=== PATIENT | male | born 1965 | race Hispanic/Latino ===

== ENCOUNTER 2018-03-05 19:31 | Inpatient (IN) | payer MEDICARE ==
[~2018-03-05] VITALS: Ht 175.3 cm; Wt 98.8 kg
[2018-03-05] MEDS ORDERED: ONDANSETRON HCL 4 MG/2 ML VIAL ONE (20:00)
[2018-03-05] MEDS ORDERED: SODIUM CHLORIDE 0.9% 1000ML 1,000 ML IV ONE (20:00)
[2018-03-05] MEDS ORDERED: MORPHINE SULFATE 8 MG/ML VIAL ONE ×2 (20:01→22:28)
[2018-03-05 20:06] LABS: BASOPHILS % (AUTO) 0.4 % (0.0-5.0); EOSINOPHILS % (AUTO) 0.1 % (0.0-8.0); HEMATOCRIT 46.1 % (42-54); LYMPHOCYTES % (AUTO) 22.5 % (21.0-51.0); MEAN CORPUSCULAR HGB CONC 35.3 g/dL (32.0-36.0); MEAN CORPUSCULAR VOLUME 84.9 fL (79-99); MONOCYTES % (AUTO) 4.3 % (3.0-13.0); NEUTROPHILS % (AUTO) 72.7 % (40.0-77.0); PLATELET COUNT (AUTO) 250 K/uL (130-400); RED BLOOD CELL COUNT(AUTO) 5.42 MIL/uL (4.50-6.20); RED CELL DISTRIBUTION WIDTH 15.5 % (11.0-15.5); WHITE BLOOD COUNT (AUTO) 12.3 K/uL (4.8-10.8)
[2018-03-05 20:22] LABS: ALBUMIN 3.5 g/dL (3.5-5.0); BILIRUBIN,TOTAL 0.8 mg/dL (0.2-1.0); CREATININE 2.6 mg/dL (0.5-1.5); POTASSIUM 5.2 mmol/L (3.5-5.1); TOTAL PROTEIN, SERUM 7.7 g/dL (6.0-8.3)
[2018-03-05 20:48] LABS: APPEARANCE,URINE CLEAR (CLEAR); BILIRUBIN,URINE NEGATIVE (NEGATIVE); COLOR,URINE YELLOW (YELLOW); GLUCOSE, URINE (UA) >=1000 mg/dL (NEGATIVE); KETONES,URINE 5 mg/dL (NEGATIVE); LEUKOCYTE ESTERASE ,URINE NEGATIVE (NEGATIVE); NITRATE,URINE NEGATIVE (NEGATIVE); OCCULT BLOOD,URINE MODERATE (NEGATIVE); PROTEIN,URINE >=300 (NEGATIVE); UROBILINOGEN,URINE 0.2 mg/dL (0.2-1.0)
[2018-03-05 21:06] LABS: BACTERIA,URINE Rare /HPF (None Seen); SQUAMOUS EPITHELIAL CELL,UR 0-2 /HPF (0-2); WBC,URINE 0-1 /HPF (0-1)
[2018-03-05] MEDS ORDERED: INSULIN HUMULIN R 100 UNIT/ML 3ML ONE (21:44)
[2018-03-05] MEDS ORDERED: GLUCAGON 1MG KIT 1 MG ML IM PRN (23:45)
[2018-03-05] MEDS ORDERED: DEXTROSE 50%-WATER 50 ML DISP.SYRIN IV PRN (23:45)
[2018-03-06] LABS: HEMOGLOBIN A1C 9.9 % (4.0-6.0)
[2018-03-06] MEDS ORDERED: INSULIN HUMULIN R 100 UNIT/ML 3ML ONE (01:22)
[2018-03-06 03:00] VITALS: BP 166/97
[2018-03-06] MEDS ORDERED: ONDANSETRON HCL 4 MG/2 ML VIAL IV PRN (03:45)
[2018-03-06] MEDS ORDERED: MORPHINE SULFATE 4 MG/1ML SYG IV PRN (03:45)
[2018-03-06] MEDS ORDERED: MORPHINE SULFATE 2 MG/ML 1ML SYG IV PRN (03:45)
[2018-03-06] MEDS ORDERED: ACETAMINOPHEN 325 MG TAB PO PRN (03:45)
[2018-03-06] MEDS ORDERED: PROMETHAZINE HCL 25 MG/ML 1ML AMPULE IM PRN (04:00)
[2018-03-06] MEDS ORDERED: PROMETHAZINE HCL 25 MG/ML 1ML AMPULE IM ONE (04:19)
[2018-03-06] MEDS ORDERED: MORPHINE SULFATE 4 MG/1ML SYG ONE (04:56)
[2018-03-06 05:26] VITALS: BP 129/68
[2018-03-06 06:26] LABS: BASOPHILS % (AUTO) 0.2 % (0.0-5.0); EOSINOPHILS % (AUTO) 0.7 % (0.0-8.0); HEMATOCRIT 40.5 % (42-54); LYMPHOCYTES % (AUTO) 24.4 % (21.0-51.0); MEAN CORPUSCULAR HEMOGLOBIN 29.3 pg (27.0-33.0); MEAN CORPUSCULAR HGB CONC 34.6 g/dL (32.0-36.0); MEAN CORPUSCULAR VOLUME 84.7 fL (79-99); MONOCYTES % (AUTO) 4.9 % (3.0-13.0); NEUTROPHILS % (AUTO) 69.8 % (40.0-77.0); PLATELET COUNT (AUTO) 191 K/uL (130-400); RED BLOOD CELL COUNT(AUTO) 4.78 MIL/uL (4.50-6.20); RED CELL DISTRIBUTION WIDTH 14.8 % (11.0-15.5); WHITE BLOOD COUNT (AUTO) 10.4 K/uL (4.8-10.8)
[2018-03-06 06:33] LABS: BILIRUBIN,TOTAL 0.7 mg/dL (0.2-1.0); CREATININE 2.8 mg/dL (0.5-1.5); MAGNESIUM 1.9 mg/dL (1.80-2.40); POTASSIUM 4.9 mmol/L (3.5-5.1); TOTAL PROTEIN, SERUM 6.7 g/dL (6.0-8.3)
[2018-03-06] MEDS: INSULIN HUMULIN R 100 UNIT/ML 3ML SQ SCH ×4 (06:37→20:42)
[2018-03-06] MEDS: SODIUM CHLORIDE 0.9% 1000ML 1,000 ML IV SCH ×3 (06:37→22:46)
[2018-03-06 07:32] VITALS: BP 170/100
[2018-03-06] MEDS ORDERED: METOPROLOL TARTRATE 1 MG/ML 5ML VIAL IV PRN (08:00)
[2018-03-06] MEDS: PANTOPRAZOLE SODIUM 40 MG TABLET.DR PO SCH (09:00)
[2018-03-06] MEDS: METOCLOPRAMIDE 10 MG/2 ML VIAL IVP SCH ×3 (09:12→20:31)
[2018-03-06] MEDS: ENOXAPARIN SODIUM 40 MG/0.4 ML SYRINGE SQ SCH (09:14)
[2018-03-06] MEDS ORDERED: INSULIN GLARGINE 100 UNITS/ML 10 ML VIAL SQ ONE (09:33)
[2018-03-06] MEDS: INSULIN GLARGINE 100 UNITS/ML 10 ML VIAL SQ SCH (10:27)
[2018-03-06] MEDS ORDERED: METOPROLOL TARTRATE 25 MG TAB PO SCH (10:45)
[2018-03-06] MEDS ORDERED: AMLODIPINE BESYLATE 5 MG TAB PO SCH (10:45)
[2018-03-06] MEDS ORDERED: LOSARTAN 100 MG TABLET ONE (10:59)
[2018-03-06 11:00] VITALS: BP 155/88
[2018-03-06] MEDS ORDERED: GABA-326 PO (14:05)
[2018-03-06] MEDS ORDERED: OMEP40CA37 PO (14:05)
[2018-03-06] MEDS ORDERED: SODI650T PO ×3 (14:05→16:14)
[2018-03-06] MEDS ORDERED: ATOR-2 PO (14:05)
[2018-03-06] MEDS ORDERED: LOSA100T20 PO (14:05)
[2018-03-06] MEDS ORDERED: METO10TA3 PO (14:05)
[2018-03-06] MEDS ORDERED: ONDA8TAB12 PO (14:05)
[2018-03-06] MEDS ORDERED: PANT40TA25 PO (14:05)
[2018-03-06] MEDS ORDERED: METO50TA18 PO (14:05)
[2018-03-06] MEDS ORDERED: PROM25TA7 PO (14:05)
[2018-03-06] MEDS ORDERED: ZOLP10TA6 PO (14:05)
[2018-03-06] MEDS ORDERED: HYDR-4068 PO (14:05)
[2018-03-06] MEDS ORDERED: ICOS1CAP PO (14:05)
[2018-03-06] MEDS ORDERED: TAMS0.4C32 PO (14:05)
[2018-03-06] MEDS ORDERED: AMLO10TA6 PO (14:05)
[2018-03-06 16:00] VITALS: BP 173/92
[2018-03-06] MEDS ORDERED: BUSP15TA3 PO (16:14)
[2018-03-06] MEDS ORDERED: ZOLPIDEM TARTRATE 5 MG TAB PO PRN (16:30)
[2018-03-06] MEDS ORDERED: BUSPIRONE HCL 5 MG TABLET PO PRN (16:30)
[2018-03-06] MEDS ORDERED: METOCLOPRAMIDE 10 MG TABLET PO SCH (17:00)
[2018-03-06] MEDS: GABAPENTIN 800 MG PO SCH ×2 (17:00→20:39)
[2018-03-06 20:00] VITALS: BP 176/95
[2018-03-06] MEDS: ATORVASTATIN CALCIUM 40 MG TABLET PO SCH (20:30)
[2018-03-06] MEDS: METOPROLOL TARTRATE 50 MG TAB PO SCH (20:31)
[2018-03-06] MEDS: SODIUM BICARBONATE 650 MG TAB PO SCH (20:31)
[2018-03-06] MEDS: ICOSAPENT ETHYL 2 GM PO SCH (20:39)
[2018-03-06] MEDS: HYDROMORPHONE 1 MG/1 ML AMP IV PRN (23:27)
[2018-03-07] VITALS (7 sets, daily range): BP systolic 96–193; BP diastolic 58–94
[2018-03-07 04:49] LABS: CREATININE 2.2 mg/dL (0.5-1.5); POTASSIUM 4.1 mmol/L (3.5-5.1)
[2018-03-07 04:50] LABS: BASOPHILS % (AUTO) 0.4 % (0.0-5.0); EOSINOPHILS % (AUTO) 1.6 % (0.0-8.0); HEMATOCRIT 39.7 % (42-54); LYMPHOCYTES % (AUTO) 38.7 % (21.0-51.0); MEAN CORPUSCULAR HEMOGLOBIN 30.4 pg (27.0-33.0); MEAN CORPUSCULAR VOLUME 84.6 fL (79-99); MONOCYTES % (AUTO) 5.5 % (3.0-13.0); NEUTROPHILS % (AUTO) 53.8 % (40.0-77.0); NUCLEATED RED BLOOD CELLS 0.1 % (0.0-0.19); PLATELET COUNT (AUTO) 214 K/uL (130-400); RED CELL DISTRIBUTION WIDTH 15.3 % (11.0-15.5); WHITE BLOOD COUNT (AUTO) 10.9 K/uL (4.8-10.8)
[2018-03-07] MEDS: INSULIN HUMULIN R 100 UNIT/ML 3ML SQ SCH ×4 (06:47→21:37)
[2018-03-07] MEDS: AMLODIPINE BESYLATE 5 MG TAB PO SCH (08:33)
[2018-03-07] MEDS: METOCLOPRAMIDE 10 MG/2 ML VIAL IVP SCH ×3 (08:33→21:39)
[2018-03-07] MEDS: METOPROLOL TARTRATE 50 MG TAB PO SCH ×2 (08:33→21:39)
[2018-03-07] MEDS: GABAPENTIN 800 MG PO SCH ×5 (08:33→21:00)
[2018-03-07] MEDS: PANTOPRAZOLE SODIUM 40 MG TABLET.DR PO SCH (08:33)
[2018-03-07] MEDS: TAMSULOSIN HCL 0.4 MG CAP.ER.24H PO SCH (08:33)
[2018-03-07] MEDS: LOSARTAN 100 MG TABLET PO SCH (08:33)
[2018-03-07] MEDS: SODIUM CHLORIDE 0.9% 1000ML 1,000 ML IV SCH ×2 (08:34→21:42)
[2018-03-07] MEDS: ENOXAPARIN SODIUM 40 MG/0.4 ML SYRINGE SQ SCH (08:34)
[2018-03-07] MEDS: INSULIN GLARGINE 100 UNITS/ML 10 ML VIAL SQ SCH (08:44)
[2018-03-07] MEDS: ICOSAPENT ETHYL 2 GM PO SCH ×2 (09:00→21:00)
[2018-03-07] MEDS: HYDRALAZINE HCL 10 MG TABLET PO SCH ×3 (09:52→21:41)
[2018-03-07] MEDS: SODIUM BICARBONATE 650 MG TAB PO SCH ×2 (09:53→21:38)
[2018-03-07] MEDS: LACTULOSE 20 GM/30 ML UDCUP PO PRN ×2 (12:43→12:47)
[2018-03-07] MEDS: ATORVASTATIN CALCIUM 40 MG TABLET PO SCH (21:38)
[2018-03-08] MEDS: HYDROMORPHONE 1 MG/1 ML AMP IV PRN ×2 (01:23→01:44)
[2018-03-08 03:40] VITALS: BP 156/59
[2018-03-08 04:33] LABS: BASOPHILS % (AUTO) 0.3 % (0.0-5.0); HEMATOCRIT 38.4 % (42-54); LYMPHOCYTES % (AUTO) 36.8 % (21.0-51.0); MEAN CORPUSCULAR HEMOGLOBIN 29.7 pg (27.0-33.0); MEAN CORPUSCULAR VOLUME 84.8 fL (79-99); MONOCYTES % (AUTO) 5.7 % (3.0-13.0); NEUTROPHILS % (AUTO) 55.2 % (40.0-77.0); NUCLEATED RED BLOOD CELLS 0.1 % (0.0-0.19); PLATELET COUNT (AUTO) 182 K/uL (130-400); RED BLOOD CELL COUNT(AUTO) 4.52 MIL/uL (4.50-6.20); RED CELL DISTRIBUTION WIDTH 15.4 % (11.0-15.5); WHITE BLOOD COUNT (AUTO) 9.3 K/uL (4.8-10.8)
[2018-03-08 04:40] LABS: CREATININE 2.4 mg/dL (0.5-1.5); POTASSIUM 4.1 mmol/L (3.5-5.1)
[2018-03-08] MEDS: SODIUM CHLORIDE 0.9% 1000ML 1,000 ML IV SCH (06:12)
[2018-03-08] MEDS: INSULIN HUMULIN R 100 UNIT/ML 3ML SQ SCH ×2 (06:12→11:57)
[2018-03-08 07:44] VITALS: BP 117/78
[2018-03-08] MEDS ORDERED: HYDR-3420 PO (08:50)
[2018-03-08] MEDS: GABAPENTIN 800 MG PO SCH (09:00)
[2018-03-08] MEDS: ICOSAPENT ETHYL 2 GM PO SCH (09:00)
[2018-03-08] MEDS: SODIUM BICARBONATE 650 MG TAB PO SCH (09:45)
[2018-03-08] MEDS: LOSARTAN 100 MG TABLET PO SCH (09:45)
[2018-03-08] MEDS: METOCLOPRAMIDE 10 MG/2 ML VIAL IVP SCH (09:45)
[2018-03-08] MEDS: AMLODIPINE BESYLATE 5 MG TAB PO SCH (09:46)
[2018-03-08] MEDS: HYDRALAZINE HCL 10 MG TABLET PO SCH (09:46)
[2018-03-08] MEDS: PANTOPRAZOLE SODIUM 40 MG TABLET.DR PO SCH (09:46)
[2018-03-08] MEDS: METOPROLOL TARTRATE 50 MG TAB PO SCH (09:46)
[2018-03-08] MEDS: TAMSULOSIN HCL 0.4 MG CAP.ER.24H PO SCH (09:46)
[2018-03-08] MEDS: ENOXAPARIN SODIUM 40 MG/0.4 ML SYRINGE SQ SCH (09:48)
[2018-03-08] MEDS: INSULIN GLARGINE 100 UNITS/ML 10 ML VIAL SQ SCH (09:48)
[2018-03-08 11:41] VITALS: BP 128/74
== END 2018-03-08 12:19 | disposition home or self-care (01) | DRG 74 ==
LOC: EDH 19:31 → EDHIP 22:08 → 4CH 03-06 02:19
PROVIDERS: ADMIT Hospitalist; ATTEND Hospitalist
DX: E11.43 Type 2 diabetes mellitus with diabetic autonomic (poly)neuropathy (principal); E87.1 Hypo-osmolality and hyponatremia; E11.65 Type 2 diabetes mellitus with hyperglycemia; K31.84 Gastroparesis; E87.5 Hyperkalemia; E11.22 Type 2 diabetes mellitus with diabetic chronic kidney disease; I12.9 Hypertensive chronic kidney disease with stage 1 through stage 4 chronic kidney disease, or unspecified chronic kidney disease; Z68.32 Body mass index [BMI] 32.0-32.9, adult; E66.9 Obesity, unspecified; N18.3 Chronic kidney disease, stage 3 (moderate); Z79.899 Other long term (current) drug therapy; Z85.118 Personal history of other malignant neoplasm of bronchus and lung; Z85.528 Personal history of other malignant neoplasm of kidney; Z90.5 Acquired absence of kidney; Z83.3 Family history of diabetes mellitus; Z82.49 Family history of ischemic heart disease and other diseases of the circulatory system; Z80.9 Family history of malignant neoplasm, unspecified
CPT/HCPCS: 36415; 74176; 80048; 80053; 81001; 82150; 82948; 83036; 83690; 83735; 85025; 87088; 93005; J1170; J1650; J1815; J2270; J2405; J2550; J2765; J3490; J7030

== ENCOUNTER 2019-06-08 22:09 | Emergency (ER) | payer MEDICARE ==
[~2019-06-08 22:09] MED LIST: ALPR0.5T PO; AMLO10TA7 PO; ATOR-2 PO; BUME1TAB6 PO; BUSP15TA3 PO; CYCL10TA7 PO; GABA-531 PO; HYDR-3420 PO; HYDR-3421 PO; HYDR-4068 PO; HYDR4 PO; ICOS1CAP PO; LEVO5TAB13 PO; LIDO1ADH82 TP; METO10TA3 PO; METO50TA18 PO; OLME40TA18 PO; ONDA-104 PO; PANT40TA25 PO; PROM25TA7 PO; SODI650T PO; TAMS0.4C32 PO; ZOLP10TA6 PO
[2019-06-08 23:01] LABS: BASOPHILS % (AUTO) 0.3 % (0.0-5.0); EOSINOPHILS % (AUTO) 6.4 % (0.0-8.0); HEMATOCRIT 35.3 % (42-54); MEAN CORPUSCULAR HEMOGLOBIN 27.7 pg (27.0-33.0); MEAN CORPUSCULAR HGB CONC 34.6 g/dL (32.0-36.0); MEAN CORPUSCULAR VOLUME 80.2 fL (79-99); NEUTROPHILS % (AUTO) 67.7 % (40.0-77.0); PLATELET COUNT (AUTO) 295 K/uL (130-400); RED CELL DISTRIBUTION WIDTH 13.4 % (11.0-15.5); WHITE BLOOD COUNT (AUTO) 11.9 K/uL (4.8-10.8)
[2019-06-08 23:02] LABS: APPEARANCE,URINE Clear (CLEAR); BILIRUBIN,URINE Negative (NEGATIVE); COLOR,URINE Yellow (YELLOW); GLUCOSE, URINE (UA) 250 mg/dL (NEGATIVE); KETONES,URINE Negative (NEGATIVE); LEUKOCYTE ESTERASE ,URINE Negative (NEGATIVE); NITRATE,URINE Negative (NEGATIVE); OCCULT BLOOD,URINE Small (NEGATIVE); PROTEIN,URINE >=1000 mg/dL (NEGATIVE)
[2019-06-08] MEDS ORDERED: HYDROMORPHONE 1 MG/1 ML AMP ONE (23:10)
[2019-06-08 23:13] LABS: BACTERIA,URINE Rare /HPF (None Seen); SQUAMOUS EPITHELIAL CELL,UR 0-2 /HPF (0-2)
[2019-06-08 23:21] LABS: CARBON DIOXIDE 21 mmol/L (21-32); CHLORIDE 104 mmol/L (101-111); CREATININE 2.7 mg/dL (0.5-1.5); GLOMERULAR FILTR. RATE CALC 27 mL/min (>60); GLUCOSE,RANDOM 175 mg/dL (70-105); POTASSIUM 4.4 mmol/L (3.5-5.1); SODIUM SERUM 138 mmol/L (136-145); UREA NITROGEN, BLOOD 18 mg/dL (7-18)
[2019-06-08 23:25] LABS: ALANINE AMINOTRANSFERASE 25 U/L (12-78); ALBUMIN 2.8 g/dL (3.5-5.0); ASPARTATE AMINOTRANSFERASE 36 U/L (10-37); BILIRUBIN,TOTAL 0.4 mg/dL (0.2-1.0); LIPASE 106 U/L (114-286); TOTAL PROTEIN, SERUM 6.2 g/dL (6.0-8.3)
== END 2019-06-09 01:35 | disposition home or self-care (01) ==
LOC: EDH 22:09
DX: J90 Pleural effusion, not elsewhere classified (principal); R10.84 Generalized abdominal pain; R11.0 Nausea; I10 Essential (primary) hypertension; E78.5 Hyperlipidemia, unspecified; E11.9 Type 2 diabetes mellitus without complications
CPT/HCPCS: 36415; 74176; 80053; 81001; 83690; 84484; 85025; 93005; 96374; 96375; 99285; J1170

== ENCOUNTER 2019-06-11 15:29 | Observation (INO) | payer MEDICARE ==
[~2019-06-11] VITALS: Ht 172.7 cm; Wt 107.5 kg
[2019-06-11] MEDS ORDERED: ONDANSETRON HCL 4 MG/2 ML VIAL ONE ×2 (15:44→19:56)
[2019-06-11] MEDS ORDERED: SODIUM CHLORIDE 0.9% 1000ML 1,000 ML IV ONE (15:44)
[2019-06-11 16:23] LABS: BASOPHILS % (AUTO) 0.4 % (0.0-5.0); EOSINOPHILS % (AUTO) 7.1 % (0.0-8.0); HEMATOCRIT 38.4 % (42-54); LYMPHOCYTES % (AUTO) 17.1 % (21.0-51.0); MEAN CORPUSCULAR HEMOGLOBIN 27.2 pg (27.0-33.0); MEAN CORPUSCULAR HGB CONC 34.4 g/dL (32.0-36.0); MEAN CORPUSCULAR VOLUME 79.2 fL (79-99); MONOCYTES % (AUTO) 4.2 % (3.0-13.0); NEUTROPHILS % (AUTO) 70.8 % (40.0-77.0); PLATELET COUNT (AUTO) 271 K/uL (130-400); RED BLOOD CELL COUNT(AUTO) 4.85 MIL/uL (4.50-6.20); RED CELL DISTRIBUTION WIDTH 13.3 % (11.0-15.5)
[2019-06-11] MEDS ORDERED: HYDROMORPHONE 1 MG/1 ML AMP ONE ×2 (16:29→19:56)
[2019-06-11] MEDS ORDERED: CALCIUM GLUCONATE 1 GM/10 ML VIAL IV ONE (16:35)
[2019-06-11] MEDS ORDERED: SODIUM CHLORIDE 0.9% 100 ML IV ONE (16:36)
[2019-06-11 16:41] LABS: CARBON DIOXIDE 19 mmol/L (21-32); CHLORIDE 105 mmol/L (101-111); CREATININE 2.5 mg/dL (0.5-1.5); GLOMERULAR FILTR. RATE CALC 29 mL/min (>60); GLUCOSE,RANDOM 199 mg/dL (70-105); SODIUM SERUM 137 mmol/L (136-145); UREA NITROGEN, BLOOD 16 mg/dL (7-18)
[2019-06-11 16:45] LABS: ALANINE AMINOTRANSFERASE 34 U/L (12-78); ALBUMIN 2.8 g/dL (3.5-5.0); ASPARTATE AMINOTRANSFERASE 48 U/L (10-37); BILIRUBIN,TOTAL 0.4 mg/dL (0.2-1.0); TOTAL PROTEIN, SERUM 6.5 g/dL (6.0-8.3)
[2019-06-11 17:37] LABS: APPEARANCE,URINE Clear (CLEAR); BILIRUBIN,URINE Negative (NEGATIVE); COLOR,URINE Yellow (YELLOW); GLUCOSE, URINE (UA) 250 mg/dL (NEGATIVE); KETONES,URINE Negative (NEGATIVE); LEUKOCYTE ESTERASE ,URINE Negative (NEGATIVE); NITRATE,URINE Negative (NEGATIVE); OCCULT BLOOD,URINE Small (NEGATIVE); PROTEIN,URINE >=1000 mg/dL (NEGATIVE)
[2019-06-11] MEDS: SODIUM CHLORIDE 0.9% 1000ML 1,000 ML IV SCH (18:00)
[2019-06-11] MEDS ORDERED: HYDROMORPHONE 1 MG/1 ML AMP IVP PRN (18:00)
[2019-06-11 18:03] LABS: BACTERIA,URINE Few /HPF (None Seen); SQUAMOUS EPITHELIAL CELL,UR 0-2 /HPF (0-2); WBC,URINE 0-1 /HPF (0-1)
[2019-06-11] MEDS: CALCIUM GLUCONATE 1 GM in SODIUM CHLORIDE 0.9% 100 ML IV SCH (22:00)
[2019-06-12] MEDS ORDERED: HYDROMORPHONE 1 MG/1 ML AMP ONE (01:16)
[2019-06-12 01:40] VITALS: BP 159/101
[2019-06-12] MEDS: ONDANSETRON HCL 4 MG/2 ML VIAL IVP PRN ×2 (02:33→08:32)
[2019-06-12] MEDS ORDERED: DULA1.5P SQ (03:08)
[2019-06-12] MEDS ORDERED: CABO60TA PO (03:08)
[2019-06-12] MEDS ORDERED: OMEP40CA13 PO (03:12)
[2019-06-12] MEDS ORDERED: HYDR50 PO (03:12)
[2019-06-12] MEDS ORDERED: LID5O TP (03:15)
[2019-06-12] MEDS ORDERED: FENT12PAT TD (03:25)
[2019-06-12 03:30] VITALS: BP 181/103
[2019-06-12] MEDS: SODIUM CHLORIDE 0.9% 1000ML 1,000 ML IV SCH (06:03)
[2019-06-12] MEDS: CALCIUM GLUCONATE 1 GM in SODIUM CHLORIDE 0.9% 100 ML IV SCH (06:03)
[2019-06-12 07:30] VITALS: BP 149/96
[2019-06-12 11:00] VITALS: BP 160/99
[2019-06-12] MEDS ORDERED: LIDOCAINE HCL 5% OINT 36GM TUBE TP SCH (11:15)
[2019-06-12] MEDS ORDERED: NON-FORMULARY MEDICATION 1 EACH (Buspirone HCl 15 MG) PO PRN (11:15)
[2019-06-12] MEDS ORDERED: HYDROCODONE/ACETAMINOPHEN 10/325 MG TAB PO PRN (11:15)
[2019-06-12] MEDS ORDERED: FENTANYL TD SCH (11:15)
[2019-06-12] MEDS ORDERED: ALPRAZOLAM 0.5 MG TABLET PO PRN (11:15)
[2019-06-12] MEDS ORDERED: ONDANSETRON 4 MG TABLET PO PRN (11:15)
[2019-06-12] MEDS ORDERED: NON-FORMULARY MEDICATION 1 EACH (Hydromorphone HCl (Dilaudid) 4 MG) PO PRN (11:15)
[2019-06-12] MEDS ORDERED: CALCIUM GLUCONATE 1 GM in SODIUM CHLORIDE 0.9% 100 ML IV SCH (11:30)
[2019-06-12] MEDS ORDERED: CALCIUM GLUCONATE 1 GM in SODIUM CHLORIDE 0.9% 50 ML IV SCH (12:00)
[2019-06-12] MEDS ORDERED: HYDROMORPHONE HCL 2 MG TAB PO PRN ×2 (12:00)
[2019-06-12] MEDS ORDERED: BUSPIRONE HCL 5 MG TABLET PO PRN ×2 (12:30)
--- NOTE | 2019-06-12 13:55 | NUR ---
DISCHARGE PATIENT GIVEN DISCHARGE INSTRUCTIONS VIA TEACH BACK. 20G PIV TO LH DISCONTINUED, TIP INTACT. RX TO BE CALLED INTO PHARMACY BY DR. HARRINGTON. PATIENT TO FOLLOW UP ON 06/19/19 PREVIOUSLY SCHEDULED. PATIENT STABLE AT THIS TIME. PATIENT TRANSPORTED TO [facility] ACCOMPANIED BY SPOUSE.
[2019-06-12] MEDS ORDERED: METOCLOPRAMIDE 10 MG TABLET PO SCH (17:00)
[2019-06-12] MEDS ORDERED: ATORVASTATIN CALCIUM 40 MG TABLET PO SCH (21:00)
[2019-06-12] MEDS ORDERED: TAMSULOSIN HCL 0.4 MG CAP.ER.24H PO SCH (21:00)
[2019-06-12] MEDS ORDERED: METOPROLOL TARTRATE 50 MG TAB PO SCH (21:00)
[2019-06-12] MEDS ORDERED: SODIUM BICARBONATE 650 MG TAB PO SCH (21:00)
[2019-06-12] MEDS ORDERED: NON-FORMULARY MEDICATION 1 EACH (Atorvastatin Calcium 80 MG) PO SCH (21:00)
[2019-06-12] MEDS ORDERED: GABAPENTIN 300 MG CAPSULE PO SCH (21:00)
[2019-06-13] MEDS ORDERED: CABOZANTINIB S MALATE 60 MG PO SCH ×2 (09:00)
[2019-06-13] MEDS ORDERED: NON-FORMULARY MEDICATION 1 EACH (Amlodipine Besylate 10 MG) PO SCH (09:00)
[2019-06-13] MEDS ORDERED: BUMETANIDE 1 MG TAB PO SCH (09:00)
[2019-06-13] MEDS ORDERED: AMLODIPINE BESYLATE 5 MG TAB PO SCH (09:00)
[2019-06-13] MEDS ORDERED: HYDRALAZINE HCL 25 MG TABLET PO SCH (09:00)
[2019-06-13] MEDS ORDERED: FENTANYL 12 MCG/HR TD SCH (09:00)
[2019-06-13] MEDS ORDERED: Olmesartan Medoxomil 40 MG PO SCH (09:00)
[2019-06-13] MEDS ORDERED: PANTOPRAZOLE SODIUM 40 MG TABLET.DR PO SCH (09:00)
[2019-06-19] MEDS ORDERED: NON-FORMULARY MEDICATION 1 EACH (Dulaglutide (Trulicity) 1.5 MG) SQ SCH (09:00)
[2019-06-19] MEDS ORDERED: DULAGLUTIDE 1.5 MG SQ SCH (09:00)
== END 2019-06-12 14:05 | disposition home or self-care (01) ==
LOC: EDH 15:29 → EDHIP 15:30 → 4CH 06-12 01:08
PROVIDERS: ADMIT Internal Medicine Hematology & Oncology; ATTEND Internal Medicine Hematology & Oncology
DX: C64.9 Malignant neoplasm of unspecified kidney, except renal pelvis (principal); C78.7 Secondary malignant neoplasm of liver and intrahepatic bile duct; C78.5 Secondary malignant neoplasm of large intestine and rectum; C79.51 Secondary malignant neoplasm of bone; E78.5 Hyperlipidemia, unspecified; E11.9 Type 2 diabetes mellitus without complications; I10 Essential (primary) hypertension; J90 Pleural effusion, not elsewhere classified; E83.51 Hypocalcemia
CPT/HCPCS: 36415; 80053; 81001; 82330; 82948 ×2; 83690; 85025; 93005; 96365; 96366; 96375; 96376; 99284; G0378 ×10; J0610 ×3; J1170 ×4; J2405 ×4; J7030 ×2

== ENCOUNTER 2019-06-15 22:46 | Emergency (ER) | payer MEDICARE ==
[~2019-06-15 22:46] MED LIST changes: +CABO60TA PO; +DULA1.5P SQ; +FENT12PAT TD; -HYDR-3420 PO; +HYDR50 PO; +LID5O TP; -LIDO1ADH82 TP; +OMEP40CA13 PO; -PANT40TA25 PO
[2019-06-15] MEDS ORDERED: ONDANSETRON HCL 4 MG/2 ML VIAL ONE (23:14)
[2019-06-15] MEDS ORDERED: HYDROMORPHONE 1 MG/1 ML AMP ONE (23:14)
[2019-06-15] MEDS ORDERED: SODIUM CHLORIDE 0.9% 1000ML 1,000 ML IV ONE (23:26)
[2019-06-15 23:35] LABS: BASOPHILS % (AUTO) 0.4 % (0.0-5.0); EOSINOPHILS % (AUTO) 10.2 % (0.0-8.0); HEMATOCRIT 37.6 % (42-54); LYMPHOCYTES % (AUTO) 24.6 % (21.0-51.0); MEAN CORPUSCULAR HEMOGLOBIN 27.9 pg (27.0-33.0); MEAN CORPUSCULAR HGB CONC 35.1 g/dL (32.0-36.0); MEAN CORPUSCULAR VOLUME 79.5 fL (79-99); MONOCYTES % (AUTO) 5.3 % (3.0-13.0); PLATELET COUNT (AUTO) 230 K/uL (130-400); RED BLOOD CELL COUNT(AUTO) 4.73 MIL/uL (4.50-6.20); RED CELL DISTRIBUTION WIDTH 13.7 % (11.0-15.5); WHITE BLOOD COUNT (AUTO) 9.5 K/uL (4.8-10.8)
[2019-06-15] MEDS ORDERED: METOCLOPRAMIDE 10 MG/2 ML VIAL ONE (23:36)
[2019-06-15] MEDS ORDERED: FAMOTIDINE/PF 20 MG/2 ML VIAL IV ONE (23:37)
[2019-06-15 23:46] LABS: CREATININE 2.7 mg/dL (0.5-1.5); POTASSIUM 4.8 mmol/L (3.5-5.1)
[2019-06-15 23:48] LABS: INR 0.99 (0.85-1.15); PARTIAL THROMBOPLASTIN TIME 27.1 SEC (26.3-35.5); PROTHROMBIN TIME 10.4 SEC (9.6-11.6)
[2019-06-15 23:56] LABS: B-TYPE NATRIURETIC PEPTIDE 61 pg/mL (0-100)
[2019-06-16 00:05] LABS: BILIRUBIN,TOTAL 0.4 mg/dL (0.2-1.0); MAGNESIUM 1.3 mg/dL (1.80-2.40); TOTAL PROTEIN, SERUM 6.8 g/dL (6.0-8.3)
[2019-06-16 00:06] LABS: ALBUMIN 2.7 g/dL (3.5-5.0)
[2019-06-16 00:13] LABS: APPEARANCE,URINE Clear (CLEAR); BILIRUBIN,URINE Negative (NEGATIVE); COLOR,URINE Yellow (YELLOW); GLUCOSE, URINE (UA) 250 mg/dL (NEGATIVE); KETONES,URINE Negative (NEGATIVE); LEUKOCYTE ESTERASE ,URINE Negative (NEGATIVE); NITRATE,URINE Negative (NEGATIVE); OCCULT BLOOD,URINE Trace (NEGATIVE); PH,URINE 6.5 (5.0-8.0); PROTEIN,URINE >=1000 mg/dL (NEGATIVE); UROBILINOGEN,URINE 0.2 mg/dL (0.2-1.0)
[2019-06-16] MEDS ORDERED: MAGNESIUM 2GM PREMIX 50ML 50 ML IV ONE (00:20)
[2019-06-16] MEDS ORDERED: CALCIUM GLUCONATE 1 GM/10 ML VIAL IV ONE (00:20)
[2019-06-16 00:27] LABS: BACTERIA,URINE Rare /HPF (None Seen); SQUAMOUS EPITHELIAL CELL,UR 0-2 /HPF (0-2); WBC,URINE 0-1 /HPF (0-1)
== END 2019-06-16 01:50 | disposition home or self-care (01) ==
LOC: EDH 22:46
DX: R10.11 Right upper quadrant pain (principal); E83.51 Hypocalcemia; E83.42 Hypomagnesemia; E86.9 Volume depletion, unspecified; E11.9 Type 2 diabetes mellitus without complications; E78.5 Hyperlipidemia, unspecified; I10 Essential (primary) hypertension
CPT/HCPCS: 36415; 80053; 81001; 82550; 83605; 83690; 83735; 83880; 84484; 85025; 85610; 85730; 93005; 96361; 96365; 96375 ×3; 99284; J0610; J1170; J2405; J2765; J3475; J3490; J7030; 96374

== ENCOUNTER 2019-07-29 01:06 | Emergency (ER) | payer MEDICARE ==
[2019-07-29] MEDS ORDERED: ONDANSETRON HCL 4 MG/2 ML VIAL ONE (01:37)
[2019-07-29 01:54] LABS: POTASSIUM 4.2 mmol/L (3.5-5.1)
[2019-07-29 01:58] LABS: ALBUMIN 2.5 g/dL (3.5-5.0); BILIRUBIN,TOTAL 0.5 mg/dL (0.2-1.0); TOTAL PROTEIN, SERUM 6.8 g/dL (6.0-8.3)
[2019-07-29 01:59] LABS: BASOPHILS % (AUTO) 0.4 % (0.0-5.0); HEMATOCRIT 43.7 % (42-54); LYMPHOCYTES % (AUTO) 28.6 % (21.0-51.0); MEAN CORPUSCULAR HEMOGLOBIN 28.8 pg (27.0-33.0); MEAN CORPUSCULAR HGB CONC 35.9 g/dL (32.0-36.0); MEAN CORPUSCULAR VOLUME 80.2 fL (79-99); MONOCYTES % (AUTO) 3.1 % (3.0-13.0); NEUTROPHILS % (AUTO) 64.5 % (40.0-77.0); PLATELET COUNT (AUTO) 249 K/uL (130-400); RED BLOOD CELL COUNT(AUTO) 5.45 MIL/uL (4.50-6.20); RED CELL DISTRIBUTION WIDTH 18.7 % (11.0-15.5); WHITE BLOOD COUNT (AUTO) 11.1 K/uL (4.8-10.8)
[2019-07-29] MEDS ORDERED: HYDROMORPHONE 1 MG/1 ML AMP ONE (02:12)
[2019-07-29 02:20] LABS: APPEARANCE,URINE Clear (CLEAR); BILIRUBIN,URINE Negative (NEGATIVE); COLOR,URINE Yellow (YELLOW); GLUCOSE, URINE (UA) 250 mg/dL (NEGATIVE); KETONES,URINE Negative (NEGATIVE); LEUKOCYTE ESTERASE ,URINE Negative (NEGATIVE); NITRATE,URINE Negative (NEGATIVE); OCCULT BLOOD,URINE Trace (NEGATIVE); PH,URINE 7.5 (5.0-8.0); PROTEIN,URINE >=1000 mg/dL (NEGATIVE); UROBILINOGEN,URINE 0.2 mg/dL (0.2-1.0)
[2019-07-29 02:39] LABS: RBC,URINE 0-1 /HPF (0-1)
[2019-07-29 02:40] LABS: BACTERIA,URINE Rare /HPF (None Seen); YEAST,URINE BUDDING Few /HPF (None Seen)
== END 2019-07-29 04:54 | disposition home or self-care (01) ==
LOC: EDH 01:06
DX: R11.2 Nausea with vomiting, unspecified (principal); C64.9 Malignant neoplasm of unspecified kidney, except renal pelvis; I12.0 Hypertensive chronic kidney disease with stage 5 chronic kidney disease or end stage renal disease; E11.22 Type 2 diabetes mellitus with diabetic chronic kidney disease; N18.6 End stage renal disease; E78.5 Hyperlipidemia, unspecified; Z79.899 Other long term (current) drug therapy
CPT/HCPCS: 36415; 74176; 80053; 81001; 82550; 83690; 84484; 85025; 93005; 96361; 96374; 96375; 99285; J1170; J2405

== ENCOUNTER 2019-10-17 20:11 | Emergency (ER) | payer MEDICARE ==
[2019-10-17] MEDS ORDERED: ONDANSETRON HCL 4 MG/2 ML VIAL ONE ×2 (21:17→23:36)
[2019-10-17] MEDS ORDERED: HYDROMORPHONE 1 MG/1 ML AMP ONE ×2 (21:18→23:36)
== END 2019-10-18 00:17 | disposition left against medical advice (07) ==
LOC: EDH 20:11
DX: R11.2 Nausea with vomiting, unspecified (principal); R10.84 Generalized abdominal pain; I10 Essential (primary) hypertension; E11.9 Type 2 diabetes mellitus without complications; E78.5 Hyperlipidemia, unspecified; Z79.899 Other long term (current) drug therapy; Z98.890 Other specified postprocedural states; Z85.05 Personal history of malignant neoplasm of liver; Z85.118 Personal history of other malignant neoplasm of bronchus and lung; Z85.830 Personal history of malignant neoplasm of bone
CPT/HCPCS: 36415; 80053; 82550; 83690; 84484; 85025; 93005; 96361; 96374; 96375; 96376 ×2; 99284; J1170 ×2; J2405 ×2; J7030

== ENCOUNTER 2019-10-18 15:07 | Inpatient (IN) | payer MEDICARE ==
[~2019-10-18] VITALS: Ht 172.7 cm; Wt 98.0 kg
[2019-10-18] MEDS ORDERED: ONDANSETRON HCL 4 MG/2 ML VIAL ONE ×2 (16:56→21:12)
[2019-10-18] MEDS ORDERED: HYDROMORPHONE 1 MG/1 ML AMP ONE ×2 (16:56→20:36)
--- NOTE | 2019-10-18 22:25 | NUR ---
Admission note: Admitted to floor from ER via stretcher. AOX4 , calm, cooperative but looking weak. Placed in bed according to pt. comfort. VS checked and recorded. Assessment done. ( See CPOE flow chart for full assessment). Plan of care initiated. Has PIV site to Rt. AC , 20 gauge with dual ports and saline locked - patent and intact. Oriented to room and use of call light. Policies and procedures explained. Monitored and observed for any unusual changes. Vomited again with a yellowish thin fluid approx. 100ml. No apparent distress noted. Needs attended and cared for.
[2019-10-18 22:45] VITALS: BP 179/111; PULSE 82; RESP 17; TEMP 98.1
[2019-10-18] MEDS: SODIUM CHLORIDE 0.9% 1000ML 1,000 ML IV SCH (22:51)
--- NOTE | 2019-10-18 23:19 | NUR ---
Called Dr Ruby Valencia for BP: 179/111. Ordered Hydralazine 10mg IV q6hrs prn for high BP and resume home medications.
[2019-10-19] MEDS ORDERED: ALPRAZOLAM 0.5 MG TABLET PO PRN
[2019-10-19] MEDS ORDERED: BUSPIRONE HCL 5 MG TABLET PO PRN
[2019-10-19] MEDS ORDERED: HYDRALAZINE HCL 20 MG/ML VIAL ONE
[2019-10-19] MEDS ORDERED: HYDROXYZINE HCL 25 MG TABLET PO PRN
[2019-10-19] MEDS ORDERED: HYDRALAZINE HCL 20 MG/ML VIAL IV PRN
[2019-10-19] MEDS ORDERED: ZOLPIDEM TARTRATE 5 MG TAB PO PRN
[2019-10-19] MEDS ORDERED: LIDOCAINE HCL 5% OINT 36GM TUBE TP SCH
[2019-10-19] MEDS: ONDANSETRON HCL 4 MG/2 ML VIAL IVP PRN ×5 (00:33→20:37)
[2019-10-19] MEDS: HYDROMORPHONE 1 MG/1 ML AMP IVP PRN ×5 (00:55→20:37)
[2019-10-19 04:00] VITALS: BP 171/104; PULSE 83; RESP 16; TEMP 98.3
[2019-10-19] MEDS: SODIUM CHLORIDE 0.9% 1000ML 1,000 ML IV SCH ×3 (06:19→22:33)
[2019-10-19 08:00] VITALS: BP 171/97; PULSE 82; RESP 19; TEMP 98.8
[2019-10-19] MEDS: AMLODIPINE BESYLATE 5 MG TAB PO SCH (08:23)
[2019-10-19] MEDS: METOCLOPRAMIDE 10 MG TABLET PO SCH ×2 (08:24→16:14)
[2019-10-19] MEDS: TAMSULOSIN HCL 0.4 MG CAP.ER.24H PO SCH (08:24)
[2019-10-19] MEDS: METOPROLOL TARTRATE 50 MG TAB PO SCH ×2 (08:25→20:36)
[2019-10-19] MEDS: SODIUM BICARBONATE 650 MG TAB PO SCH ×2 (08:25→20:36)
[2019-10-19] MEDS: LORATADINE 10 MG TABLET PO SCH (08:25)
[2019-10-19] MEDS: LOSARTAN 100 MG TABLET PO SCH (08:25)
[2019-10-19] MEDS: HYDRALAZINE HCL 25 MG TABLET PO SCH ×2 (08:25→20:35)
[2019-10-19] MEDS: CABOZANTINIB S MALATE 60 MG PO SCH (08:25)
[2019-10-19] MEDS: PANTOPRAZOLE SODIUM 40 MG TABLET.DR PO SCH (08:25)
[2019-10-19] MEDS ORDERED: FENTANYL PO SCH (09:00)
--- NOTE | 2019-10-19 11:15 | NUR ---
DCP CM spoke to pt discussed dc plans. Pt is semi-independent prior to admission, lives at home with spouse. Has a cane, walker, scooter for long distance. Denies any other equipments/services. Feels safe to go back home, spouse able to assist with transportation and needs as necessary. DC plan to home once stable. CM to cont to follow up. Addendum: 10/19/19 at 1116 by CYN NUÑEZ LVN CM Amended: Links added.
[2019-10-19 11:59] VITALS: BP 171/96; PULSE 81; RESP 19; TEMP 97.9
[2019-10-19 16:00] VITALS: BP 133/83; PULSE 83; RESP 18; TEMP 98.8
[2019-10-19] MEDS: METOCLOPRAMIDE 10 MG/2 ML VIAL IVP SCH (16:21)
[2019-10-19 20:12] VITALS: BP 161/91; PULSE 85; RESP 20; TEMP 98.1
[2019-10-19] MEDS: ATORVASTATIN CALCIUM 40 MG TABLET PO SCH (20:35)
[2019-10-19] MEDS: FISH OIL 1000 MG/CAP PO SCH (20:36)
[2019-10-19] MEDS: GABAPENTIN 300 MG CAPSULE PO SCH (20:37)
[2019-10-20 00:12] VITALS: BP 142/89; PULSE 80; RESP 20; TEMP 98.3
[2019-10-20] MEDS: ONDANSETRON HCL 4 MG/2 ML VIAL IVP PRN ×6 (01:12→21:15)
[2019-10-20] MEDS: HYDROMORPHONE 1 MG/1 ML AMP IVP PRN ×6 (01:13→21:15)
--- NOTE | 2019-10-20 03:07 | NUR ---
PT REFUSED CONSULT WITH DR. KIM BC DR. KIM REQUESTED COVID TESTING AND PATIENT IS DENYING IT PATINT DOES NOT WANT TO MOVE TO ROOM 301 PER HOUSE SUP PER PROTOCOL AND IS UPSET DR. KIM REQUESTED COVID TESTING PER PROTOCOL HOUSE SUP AWARE
--- NOTE | 2019-10-20 04:00 | NUR ---
WITH PATIENT'S PERMISSION, I SPOKE WITH PATIENT'S . SHE CALLED WANTED INFORMATION ABOUT THE PATIENT I EXPLAINED TO HER THE SAME INFORMATION I HAD TO THE PATIENT DR. HARRINGTON PLACED A CONSULT FOR DR. KIM BC PT IS HERE AGAIN WITH INTRACTABLE VOMITING AND NAUSEA, AND DR. KIM IS REQUESTING A NEGATIVE COVID TESTING PER PROTOCOL , NOT BC PT IS EXPERIENCING SYMPTOMS BUT JUST FOR PROTECTION OF HIMSELF AND OTHER PATIENTS SINCE WE ARE IN THE MIDDLE OF THE COVID PANDEMIC WE DO NOT HAVE POSITIVE COVID PATIENTS ON THIS FLOOR , AND I WAS TOLD BY MY CHEMICAL OPERATOR, FOR THE HOSPITAL'S PROTOCOL ANYONE TESTING FOR COVID HAS TO BE ON A NEGATIVE PRESSURE ROOM THE ROOM IS A PRIVATE ROOM. VERBALIZES UNDERSTANDING, AWARE THAT PT REFUSE DR. KIM'S CONSULT SHE STATED, SHE WAS GOING TO CALL PATIENT AGAIN AND TRY TO CONVINCE HIM TO ACCEPT DR. KIM'S RECOMMENDATIONS
[2019-10-20 04:16] VITALS: BP 169/92; PULSE 80; RESP 20; TEMP 97.7
[2019-10-20] MEDS ORDERED: SIMETHICONE 80 MG TAB.CHEW ONE (05:28)
[2019-10-20] MEDS: METOCLOPRAMIDE 10 MG/2 ML VIAL IVP SCH ×4 (07:30→17:13)
[2019-10-20] MEDS: SODIUM CHLORIDE 0.9% 1000ML 1,000 ML IV SCH ×3 (07:49→21:12)
--- NOTE | 2019-10-20 07:55 | NUR ---
DR. KIM PAGED TO NOTIFY PT REFUSED CONSULT
[2019-10-20 08:00] VITALS: BP 154/89; PULSE 77; RESP 19; TEMP 97.9
--- NOTE | 2019-10-20 08:01 | NUR ---
DR. RUSSELL AWARE THAT PATIENT GOT UPSET TO BE TESTED FOR COVID AND DID NOT WANT TO BE MOVED ROOMED AND HE WAS REFUSING CONSULT, DR. KIM STATED TO REMOVED HIM FROM HIS CENSUS AND IT WAS LESS TIME TAKEN AWAY FROM HIM.
[2019-10-20] MEDS: HYDRALAZINE HCL 25 MG TABLET PO SCH ×2 (08:40→21:10)
[2019-10-20] MEDS: METOCLOPRAMIDE 10 MG TABLET PO SCH ×2 (08:40→17:00)
[2019-10-20] MEDS: AMLODIPINE BESYLATE 5 MG TAB PO SCH (08:41)
[2019-10-20] MEDS: METOPROLOL TARTRATE 50 MG TAB PO SCH ×2 (08:41→21:11)
[2019-10-20] MEDS: TAMSULOSIN HCL 0.4 MG CAP.ER.24H PO SCH (08:41)
[2019-10-20] MEDS: PANTOPRAZOLE SODIUM 40 MG TABLET.DR PO SCH (08:41)
[2019-10-20] MEDS: SODIUM BICARBONATE 650 MG TAB PO SCH ×2 (08:42→21:09)
[2019-10-20] MEDS: LORATADINE 10 MG TABLET PO SCH (08:54)
[2019-10-20] MEDS: LOSARTAN 100 MG TABLET PO SCH (08:54)
[2019-10-20] MEDS: CABOZANTINIB S MALATE 60 MG PO SCH (08:54)
[2019-10-20 11:45] VITALS: BP 137/86; PULSE 74; RESP 19; TEMP 97.7
[2019-10-20 16:00] VITALS: BP 137/82; PULSE 71; RESP 20; TEMP 98.2
[2019-10-20 20:00] VITALS: BP 143/82; PULSE 78; RESP 18; TEMP 97.9
[2019-10-20] MEDS: GABAPENTIN 300 MG CAPSULE PO SCH (21:10)
[2019-10-20] MEDS: FISH OIL 1000 MG/CAP PO SCH (21:10)
[2019-10-20] MEDS: ATORVASTATIN CALCIUM 40 MG TABLET PO SCH (21:11)
[2019-10-21] VITALS (7 sets, daily range): BP systolic 125–157; BP diastolic 78–91; PULSE 73–79; RESP 17–19; TEMP 95.7–98.6
[2019-10-21] MEDS: HYDROMORPHONE 1 MG/1 ML AMP IVP PRN ×6 (01:15→23:21)
[2019-10-21] MEDS: ONDANSETRON HCL 4 MG/2 ML VIAL IVP PRN ×5 (01:16→19:17)
[2019-10-21] MEDS: METOCLOPRAMIDE 10 MG TABLET PO SCH ×2 (07:54→09:59)
[2019-10-21] MEDS: CABOZANTINIB S MALATE 60 MG PO SCH (09:00)
[2019-10-21] MEDS: METOCLOPRAMIDE 10 MG/2 ML VIAL IVP SCH ×3 (09:19→17:04)
[2019-10-21] MEDS: PANTOPRAZOLE SODIUM 40 MG TABLET.DR PO SCH (09:19)
[2019-10-21] MEDS: AMLODIPINE BESYLATE 5 MG TAB PO SCH (09:19)
[2019-10-21] MEDS: LORATADINE 10 MG TABLET PO SCH (09:20)
[2019-10-21] MEDS: METOPROLOL TARTRATE 50 MG TAB PO SCH ×2 (09:20→20:38)
[2019-10-21] MEDS: TAMSULOSIN HCL 0.4 MG CAP.ER.24H PO SCH (09:20)
[2019-10-21] MEDS: HYDRALAZINE HCL 25 MG TABLET PO SCH ×2 (09:20→20:38)
[2019-10-21] MEDS: SODIUM BICARBONATE 650 MG TAB PO SCH ×2 (09:20→20:39)
[2019-10-21] MEDS: LOSARTAN 100 MG TABLET PO SCH (09:20)
[2019-10-21] MEDS: SODIUM CHLORIDE 0.9% 1000ML 1,000 ML IV SCH ×2 (11:48→20:40)
[2019-10-21] MEDS: GABAPENTIN 300 MG CAPSULE PO SCH (20:37)
[2019-10-21] MEDS: ATORVASTATIN CALCIUM 40 MG TABLET PO SCH (20:39)
[2019-10-21] MEDS: FISH OIL 1000 MG/CAP PO SCH (21:00)
[2019-10-22 03:46] VITALS: BP 151/87; PULSE 74; RESP 17; TEMP 97.9
[2019-10-22] MEDS: SODIUM CHLORIDE 0.9% 1000ML 1,000 ML IV SCH (04:00)
[2019-10-22] MEDS: HYDROMORPHONE 1 MG/1 ML AMP IVP PRN ×2 (04:01→08:31)
[2019-10-22] MEDS: METOCLOPRAMIDE 10 MG/2 ML VIAL IVP SCH ×2 (07:30→11:30)
[2019-10-22 07:57] VITALS: BP 133/87; PULSE 80; RESP 16; TEMP 97.9
[2019-10-22] MEDS: METOCLOPRAMIDE 10 MG TABLET PO SCH (08:26)
[2019-10-22] MEDS: PANTOPRAZOLE SODIUM 40 MG TABLET.DR PO SCH (08:27)
[2019-10-22] MEDS: TAMSULOSIN HCL 0.4 MG CAP.ER.24H PO SCH (08:27)
[2019-10-22] MEDS: HYDRALAZINE HCL 25 MG TABLET PO SCH (08:27)
[2019-10-22] MEDS: LORATADINE 10 MG TABLET PO SCH (08:27)
[2019-10-22] MEDS: METOPROLOL TARTRATE 50 MG TAB PO SCH (08:28)
[2019-10-22] MEDS: SODIUM BICARBONATE 650 MG TAB PO SCH (08:28)
[2019-10-22] MEDS: LOSARTAN 100 MG TABLET PO SCH (08:28)
[2019-10-22] MEDS: AMLODIPINE BESYLATE 5 MG TAB PO SCH (08:28)
[2019-10-22] MEDS: CABOZANTINIB S MALATE 60 MG PO SCH (08:38)
[2019-10-22] MEDS ORDERED: DULAGLUTIDE 1.5 MG/0.5 ML SQ SCH (09:00)
[2019-10-22] MEDS ORDERED: HEPARIN SODIUM/PF 100UNIT/ML 5ML SYRINGE IV SCH (11:45)
[2019-10-22 12:00] VITALS: BP 129/83; PULSE 75; RESP 16; TEMP 97.7
--- NOTE | 2019-10-22 12:15 | NUR ---
Discharge instructions, home meds to continue and follow up appointments reviewed with patient. Follow up appointment set up for 10/28 at 1:15 pm, however patient could not make that appointment due to plans out of town. Called Dr. Valencia's office and reschedule follow up to previously scheduled appointment of 11/06/19 at 1:15 pm. Patient verbalized understanding of discharge instructions and follow up with Dr. Valencia. No new medications ordered. Removed PIV to RAC, no bleeding noted. Dressed with gauze and bandaid. Flushed port access with 10 mL normal saline syringe, then flushed with 300 unit of heparin per protocol. Removed dressing to port access using aseptic technique, port then de-accessed. Port site cleansed with Povidine swabs, 4x4 dressing applied covered with clear tegaderm. Dressing clean, dry and intact. No drainage noted. Patient assisted to emergency entrance via hospital bed by Tez Esteban NP, charge nurse, where spouse awaited to transport home.
== END 2019-10-22 12:40 | disposition home or self-care (01) | DRG 392 ==
LOC: EDH 15:07 → EDHIP 15:44 → 3BH 21:52
PROVIDERS: ADMIT Internal Medicine Hematology & Oncology; ATTEND Internal Medicine Hematology & Oncology
DX: R11.2 Nausea with vomiting, unspecified (principal); F11.20 Opioid dependence, uncomplicated; C78.00 Secondary malignant neoplasm of unspecified lung; C78.7 Secondary malignant neoplasm of liver and intrahepatic bile duct; C64.9 Malignant neoplasm of unspecified kidney, except renal pelvis; C80.1 Malignant (primary) neoplasm, unspecified; G89.29 Other chronic pain; I10 Essential (primary) hypertension; E78.5 Hyperlipidemia, unspecified; E11.9 Type 2 diabetes mellitus without complications; N19 Unspecified kidney failure; Z90.5 Acquired absence of kidney

== ENCOUNTER 2019-11-24 10:41 | Emergency (ER) | payer MEDICARE ==
[~2019-11-24 10:41] MED LIST changes: -BUME1TAB6 PO; -CYCL10TA7 PO; -HYDR-4068 PO; +HYDR-4154 PO; -HYDR50 PO; -PROM25TA7 PO; +TAMS-1 PO; -TAMS0.4C32 PO
[2019-11-24] MEDS ORDERED: ONDANSETRON HCL 4 MG/2 ML VIAL ONE (11:09)
[2019-11-24] MEDS ORDERED: HYDROMORPHONE 1 MG/1 ML AMP ONE (11:10)
[2019-11-24 11:40] LABS: BASOPHILS % (AUTO) 0.5 % (0.0-5.0); EOSINOPHILS % (AUTO) 9.6 % (0.0-8.0); HEMATOCRIT 39.4 % (42-54); LYMPHOCYTES % (AUTO) 25.9 % (21.0-51.0); MEAN CORPUSCULAR HGB CONC 35.3 g/dL (32.0-36.0); MEAN CORPUSCULAR VOLUME 96.3 fL (79-99); MONOCYTES % (AUTO) 4.8 % (3.0-13.0); NEUTROPHILS % (AUTO) 58.7 % (40.0-77.0); PLATELET COUNT (AUTO) 174 K/uL (130-400); RED BLOOD CELL COUNT(AUTO) 4.09 MIL/uL (4.50-6.20); RED CELL DISTRIBUTION WIDTH 13.7 % (11.0-15.5); WHITE BLOOD COUNT (AUTO) 8.5 K/uL (4.8-10.8)
[2019-11-24 11:49] LABS: CREATININE 3.6 mg/dL (0.5-1.5)
[2019-11-24 12:02] LABS: ALBUMIN 2.4 g/dL (3.5-5.0); TOTAL PROTEIN, SERUM 5.3 g/dL (6.0-8.3)
[2019-11-24 12:20] LABS: BILIRUBIN,DIRECT 0.1 mg/dL (0.0-0.3); BILIRUBIN,TOTAL 0.4 mg/dL (0.2-1.0)
== END 2019-11-24 13:41 | disposition home or self-care (01) ==
LOC: EDH 10:41
DX: A08.4 Viral intestinal infection, unspecified (principal); E11.9 Type 2 diabetes mellitus without complications; E78.5 Hyperlipidemia, unspecified; I10 Essential (primary) hypertension
CPT/HCPCS: 36415; 74176; 80048; 80076; 82550; 83690; 85025; 93005; 96361; 96374; 96375; 99285; J1170; J2405

== ENCOUNTER 2019-12-18 18:11 | Inpatient (IN) | payer MEDICARE ==
[~2019-12-18] VITALS: Ht 172.7 cm; Wt 102.1 kg
[2019-12-18 18:59] LABS: BASOPHILS % (AUTO) 0.3 % (0.0-5.0); EOSINOPHILS % (AUTO) 5.4 % (0.0-8.0); HEMATOCRIT 40.6 % (42-54); LYMPHOCYTES % (AUTO) 26.5 % (21.0-51.0); MEAN CORPUSCULAR HEMOGLOBIN 33.9 pg (27.0-33.0); MEAN CORPUSCULAR HGB CONC 36.2 g/dL (32.0-36.0); MEAN CORPUSCULAR VOLUME 93.8 fL (79-99); MONOCYTES % (AUTO) 5.5 % (3.0-13.0); NEUTROPHILS % (AUTO) 61.9 % (40.0-77.0); PLATELET COUNT (AUTO) 176 K/uL (130-400); RED BLOOD CELL COUNT(AUTO) 4.33 MIL/uL (4.50-6.20); RED CELL DISTRIBUTION WIDTH 13.3 % (11.0-15.5); WHITE BLOOD COUNT (AUTO) 9.7 K/uL (4.8-10.8)
[2019-12-18 19:12] LABS: CREATININE 3.7 mg/dL (0.5-1.5); POTASSIUM 3.7 mmol/L (3.5-5.1)
[2019-12-18 19:17] LABS: ALBUMIN 2.6 g/dL (3.5-5.0); BILIRUBIN,TOTAL 0.7 mg/dL (0.2-1.0); TOTAL PROTEIN, SERUM 6.5 g/dL (6.0-8.3)
[2019-12-18] MEDS ORDERED: ONDANSETRON HCL 4 MG/2 ML VIAL ONE ×2 (19:35→21:34)
[2019-12-18] MEDS ORDERED: MORPHINE SULFATE 4 MG/1ML SYG ONE (19:35)
[2019-12-18 20:09] LABS: APPEARANCE,URINE Clear (CLEAR); BILIRUBIN,URINE Negative (NEGATIVE); COLOR,URINE Yellow (YELLOW); GLUCOSE, URINE (UA) TRACE mg/dL (NEGATIVE); KETONES,URINE Negative (NEGATIVE); LEUKOCYTE ESTERASE ,URINE Negative (NEGATIVE); NITRATE,URINE Negative (NEGATIVE); OCCULT BLOOD,URINE Small (NEGATIVE); PROTEIN,URINE >=1000 mg/dL (NEGATIVE); UROBILINOGEN,URINE 0.2 mg/dL (0.2-1.0)
[2019-12-18 20:26] LABS: BACTERIA,URINE Rare /HPF (None Seen); RBC,URINE None Seen /HPF (0-1); SQUAMOUS EPITHELIAL CELL,UR None Seen /HPF (0-2); WBC,URINE 0-1 /HPF (0-1)
[2019-12-18] MEDS: SODIUM CHLORIDE 0.9% 1000ML 1,000 ML IV SCH (20:30)
[2019-12-18] MEDS ORDERED: HYDROMORPHONE 1 MG/1 ML AMP ONE (20:54)
[2019-12-18] MEDS ORDERED: METOCLOPRAMIDE 10 MG/2 ML VIAL ONE (23:47)
[2019-12-19] VITALS (10 sets, daily range): BP systolic 134–194; BP diastolic 86–114
--- NOTE | 2019-12-19 00:38 | NUR ---
ADMISSION Admitted from ED via stretcher,pt aao x 3,vomitted yellow colored emesis.Oral care provided.
--- NOTE | 2019-12-19 01:50 | NUR ---
HOME MEDS Pt did not have his current home med bottles/list.He said he will call his in am.
[2019-12-19] MEDS: ONDANSETRON HCL 4 MG/2 ML VIAL IVP PRN ×2 (03:39→11:13)
[2019-12-19] MEDS: HYDROMORPHONE HCL 2 MG/ML VIAL IVP PRN ×3 (03:39→19:45)
--- NOTE | 2019-12-19 03:48 | NUR ---
PAIN/NAUSEA Medicated with Dilaudid for pain,Zofran for nausea.
[2019-12-19] MEDS: SODIUM CHLORIDE 0.9% 1000ML 1,000 ML IV SCH ×2 (05:27→16:30)
[2019-12-19] MEDS: PANTOPRAZOLE SODIUM 40 MG TABLET.DR PO SCH (10:30)
[2019-12-19] MEDS ORDERED: CLONIDINE HCL 0.1 MG TABLET PO SCH (12:00)
--- NOTE | 2019-12-19 14:20 | NUR ---
KISHA NOTE/IA UNABLE TO MEET WITH PATIENT, NEXT OF KIN CALLED, FAITH MAGAÑA. PER SPOUSE, PATIENT LIVES WITH HER, REQUIRES SOME ASSISTANCE WITH ADLS, HAS USE OF MEDIC PROVIDER SERVICES AT 28.5 HR PER WEEK AND [facility] FOR HOME OXYGEN, ALSO HAS USE OF CANE AND SCOOTER AND FEELS SAFE FOR PATIENT TO RETURN TO HER ONCE DISCHARGE FROM HOSPITAL. Addendum: 12/20/19 at 1118 by CHIARA DECKER RN CM Amended: Links added.
[2019-12-19] MEDS ORDERED: METOPROLOL TARTRATE 50 MG TAB ONE (18:21)
[2019-12-19] MEDS ORDERED: METOCLOPRAMIDE 10 MG/2 ML VIAL ONE (18:21)
[2019-12-19] MEDS ORDERED: AMLODIPINE BESYLATE 5 MG TAB ONE (18:22)
[2019-12-19] MEDS ORDERED: HYDRALAZINE HCL 25 MG TABLET ONE (18:22)
[2019-12-19] MEDS ORDERED: BUME1TAB6 PO (19:21)
[2019-12-19] MEDS ORDERED: ALPR-410 PO (19:21)
[2019-12-19] MEDS ORDERED: CABO60TA PO (19:21)
[2019-12-19] MEDS ORDERED: GABA300C PO (19:21)
[2019-12-19] MEDS ORDERED: TAMS-1 PO (19:21)
[2019-12-19] MEDS ORDERED: HYDR-3420 PO (19:21)
[2019-12-19] MEDS ORDERED: METO50TA18 PO (19:26)
[2019-12-19] MEDS ORDERED: MAGN400T40 PO (19:26)
[2019-12-19] MEDS ORDERED: ATOR40TA69 PO (19:26)
[2019-12-19] MEDS ORDERED: HYDR-3421 PO (19:26)
[2019-12-19] MEDS ORDERED: CALC-1255 PO (19:26)
[2019-12-19] MEDS ORDERED: METO10TA3 PO (19:26)
[2019-12-19] MEDS ORDERED: AMLO10TA7 PO (19:26)
[2019-12-19] MEDS ORDERED: DIPH1TAB24 PO (19:40)
[2019-12-19] MEDS ORDERED: ELUX100T PO (19:40)
[2019-12-19] MEDS ORDERED: ICOS1CAP PO (19:40)
[2019-12-19] MEDS ORDERED: GRAN1PAT TD (19:40)
[2019-12-19] MEDS ORDERED: LEVO5TAB13 PO (19:40)
[2019-12-19] MEDS ORDERED: BUSP15TA3 PO (19:40)
[2019-12-19] MEDS ORDERED: FENT12PAT TD (19:40)
[2019-12-19] MEDS ORDERED: METOCLOPRAMIDE 10 MG TABLET PO PRN (19:45)
[2019-12-19] MEDS ORDERED: ALPRAZOLAM 0.5 MG TABLET PO PRN (19:45)
[2019-12-19] MEDS ORDERED: CETIRIZINE HCL 5 MG TABLET PO SCH (19:45)
[2019-12-19] MEDS ORDERED: METOCLOPRAMIDE 10 MG/2 ML VIAL IVP SCH (19:45)
[2019-12-19] MEDS ORDERED: HYDROXYZINE HCL 25 MG TABLET PO PRN (19:45)
[2019-12-19] MEDS ORDERED: ATORVASTATIN CALCIUM 40 MG TABLET PO SCH (21:00)
[2019-12-19] MEDS: ELUXADOLINE 100 MG PO SCH (21:00)
[2019-12-19] MEDS: DIPHENOXYLATE HCL/ATROPINE 2.5/0.025 MG TAB PO SCH ×2 (21:18→22:47)
[2019-12-19] MEDS: CALCIUM CARBONATE 500 MG TABLET PO SCH (21:19)
[2019-12-19] MEDS: MAGNESIUM OXIDE 400 MG TABLET PO SCH (21:19)
[2019-12-19] MEDS: METOPROLOL TARTRATE 50 MG TAB PO SCH (21:19)
[2019-12-19] MEDS: HYDRALAZINE HCL 25 MG TABLET PO SCH (21:19)
[2019-12-19] MEDS: BUSPIRONE HCL 5 MG TABLET PO SCH (21:19)
[2019-12-20] MEDS: HYDROMORPHONE HCL 2 MG/ML VIAL IVP PRN ×3 (01:28→12:22)
[2019-12-20] MEDS: SODIUM CHLORIDE 0.9% 1000ML 1,000 ML IV SCH (02:52)
[2019-12-20] MEDS: DIPHENOXYLATE HCL/ATROPINE 2.5/0.025 MG TAB PO SCH ×3 (02:54→12:00)
[2019-12-20 03:40] VITALS: BP 136/78
[2019-12-20 08:00] VITALS: BP 165/80
[2019-12-20] MEDS: ONDANSETRON HCL 4 MG/2 ML VIAL IVP PRN ×2 (08:47→12:21)
[2019-12-20] MEDS ORDERED: GABAPENTIN 300 MG CAPSULE PO SCH (09:00)
[2019-12-20] MEDS ORDERED: GRANISETRON TP SCH (09:00)
[2019-12-20] MEDS ORDERED: TAMSULOSIN HCL 0.4 MG CAP.ER.24H PO SCH (09:00)
[2019-12-20] MEDS ORDERED: AMLODIPINE BESYLATE 5 MG TAB PO SCH (09:00)
[2019-12-20] MEDS ORDERED: ICOSAPENT ETHYL 1 GM PO SCH (09:00)
[2019-12-20] MEDS: BUSPIRONE HCL 5 MG TABLET PO SCH (09:00)
[2019-12-20] MEDS ORDERED: FENTANYL TP SCH (09:00)
[2019-12-20] MEDS: ELUXADOLINE 100 MG PO SCH (09:00)
[2019-12-20] MEDS ORDERED: CABOZANTINIB S MALATE 60 MG PO SCH (09:00)
[2019-12-20] MEDS ORDERED: BUMETANIDE 1 MG TAB PO SCH (09:00)
[2019-12-20] MEDS: HYDRALAZINE HCL 25 MG TABLET PO SCH (09:42)
[2019-12-20] MEDS: MAGNESIUM OXIDE 400 MG TABLET PO SCH (09:44)
[2019-12-20] MEDS: METOPROLOL TARTRATE 50 MG TAB PO SCH (09:44)
[2019-12-20] MEDS: CALCIUM CARBONATE 500 MG TABLET PO SCH (09:46)
[2019-12-20] MEDS: PANTOPRAZOLE SODIUM 40 MG TABLET.DR PO SCH (09:46)
[2019-12-20 12:00] VITALS: BP 151/88
--- NOTE | 2019-12-20 14:30 | NUR ---
DISCHARGE PATIENT GIVEN DISCHARGE INSTRUCTIONS VIA TEACH BACK. 20G PIV TO RAC DISCONTINUED, TIP INTACT. PATIENT TO KEEP FOLLOW UP APPOINTMENT WITH DR. HARRINGTON ON 12/26/19 AT 1045. NO RX GIVEN AT THIS TIME. PATIENT STABLE AND WHEELED TO [facility] FOR DISCHARGE BY HARJIT ELLIS.
== END 2019-12-20 15:00 | disposition home or self-care (01) | DRG 392 ==
LOC: EDH 18:11 → EDHIP 19:34 → 3DH 23:16
PROVIDERS: ADMIT Internal Medicine Hematology & Oncology; ATTEND Internal Medicine Hematology & Oncology
DX: R11.2 Nausea with vomiting, unspecified (principal); C64.9 Malignant neoplasm of unspecified kidney, except renal pelvis; C78.7 Secondary malignant neoplasm of liver and intrahepatic bile duct; C79.51 Secondary malignant neoplasm of bone; N18.4 Chronic kidney disease, stage 4 (severe); C78.02 Secondary malignant neoplasm of left lung; C78.01 Secondary malignant neoplasm of right lung; E44.0 Moderate protein-calorie malnutrition; E86.0 Dehydration; E11.22 Type 2 diabetes mellitus with diabetic chronic kidney disease; I12.9 Hypertensive chronic kidney disease with stage 1 through stage 4 chronic kidney disease, or unspecified chronic kidney disease; E78.5 Hyperlipidemia, unspecified; Z90.5 Acquired absence of kidney; T45.1X5A Adverse effect of antineoplastic and immunosuppressive drugs, initial encounter; Y92.9 Unspecified place or not applicable
CPT/HCPCS: 36415; 80053; 81001; 82150; 82948; 83690; 85025; 93005; G0378; J1170; J2270; J2405; J2765; J7030